=== PATIENT | female | born 1985 | race Caucasian/White ===

== ENCOUNTER 2023-05-15 21:07 | Emergency (ER) | payer MEDICAID ==
[~2023-05-15] VITALS: Ht 170.2 cm; Wt 155.0 kg
[2023-05-15 21:12] VITALS: BP 159/103; PULSE 86; RESP 18; TEMP 97.8; O2SAT 100
[2023-05-15 21:46] LABS: BILIRUBIN,URINE NEGATIVE (Neg); COLOR,URINE YELLOW (Yellow); GLUCOSE, URINE NEGATIVE (Neg); KETONES,URINE NEGATIVE (Neg); LEUKOCYTE ESTERASE ,URINE NEGATIVE (Neg); NITRITES, URINE NEGATIVE (Neg); OCCULT BLOOD,URINE LARGE (Neg); PROTEIN,URINE NEGATIVE (Neg); URINE HCG NEGATIVE (NEG); UROBILINOGEN,URINE 0.2 E.U/dL (0.2-1.0)
[2023-05-15 21:50] LABS: CLARITY,URINE CLOUDY (Clear); UA COLLECTION TYPE NON-SPECIFIED
[2023-05-15 21:52] LABS: MUCUS STRANDS NONE SEEN /LPF (Neg); RBC,URINE TNTC /HPF (0-2); SQUAMOUS EPITHELIAL CELL,UR MODERATE /LPF (FEW)
[2023-05-15 21:53] LABS: BACTERIA,URINE 1+ /HPF (Neg); WBC,URINE 0-4 /HPF (0-4)
[2023-05-15 21:56] LABS: BASOPHILS # (AUTO) 0.1 X10'3 (0-0.2); BASOPHILS % (AUTO) 0.8 % (0-1); EOSINOPHILS # (AUTO) 0.4 X10'3 (0-0.9); EOSINOPHILS % (AUTO) 3.8 % (0-6); HEMOGLOBIN 14.2 g/dl (12.0-16.0); LYMPHOCYTES # (AUTO) 2.2 X10'3 (1.1-4.8); LYMPHOCYTES % (AUTO) 22.3 % (21-51); MEAN CORPUSCULAR HEMOGLOBIN 30.2 PG (27.0-31.0); MEAN CORPUSCULAR HGB CONC 34.7 g/dL (33.0-36.5); MONOCYTES # (AUTO) 0.6 X10'3 (0-0.9); MONOCYTES % (AUTO) 6.1 % (2-12); NEUTROPHILS # (AUTO) 6.6 X10'3 (1.8-7.7); PLATELET COUNT 313 X10'3 (140-440); RED BLOOD COUNT 4.71 X10'6 (4.20-5.60); RED CELL DISTRIBUTION WIDTH 13.9 % (11.5-14.5); WHITE BLOOD COUNT 9.8 X10'3 (4.5-11.0)
[2023-05-15 22:10] LABS: ALANINE AMINOTRANSFERASE 42 U/L (12-78); ALBUMIN 3.5 G/DL (3.4-5.0); ALKALINE PHOSPHATASE 93 IU/L (46-116); ANION GAP 9 (8-16); ASPARTATE AMINO TRANSFERASE 18 U/L (10-37); BILIRUBIN,TOTAL 0.2 MG/DL (0.1-1.0); BLOOD UREA NITROGEN 18 MG/DL (7-18); BUN/CREATININE RATIO 26.9 (10.0-20.0); CALCIUM 9.2 MG/DL (8.5-10.1); CHLORIDE 102 MMOL/L (99-107); CREATININE 0.67 MG/DL (0.40-0.90); GLUCOSE 102 MG/DL (70-104); POTASSIUM 3.7 MMOL/L (3.5-5.1); SODIUM 136 MMOL/L (135-145); TOTAL PROTEIN 7.1 G/DL (6.4-8.2); eCRCL 110 ML/MIN; eGFR > 90 ML/MIN
[2023-05-15 22:17] LABS: LIPASE 25 U/L (16-77)
== END 2023-05-16 03:11 | disposition left against medical advice (07) ==
LOC: ER 21:08
DX: R10.9 Unspecified abdominal pain (principal); Z53.21 Procedure and treatment not carried out due to patient leaving prior to being seen by health care provider
CPT/HCPCS: 36415; 80053; 81001; 81025; 83690; 85025; 99281

== ENCOUNTER 2023-09-21 11:28 | Emergency (ER) | payer MEDICAID ==
[2023-09-21 11:55] LABS: BASOPHILS # (AUTO) 0.1 X10'3 (0-0.2); BASOPHILS % (AUTO) 0.7 % (0-1); EOSINOPHILS # (AUTO) 0.3 X10'3 (0-0.9); EOSINOPHILS % (AUTO) 3.8 % (0-6); HEMATOCRIT 40.9 % (35.0-45.0); HEMOGLOBIN 14.1 g/dl (12.0-16.0); LYMPHOCYTES # (AUTO) 1.2 X10'3 (1.1-4.8); LYMPHOCYTES % (AUTO) 15.5 % (21-51); MEAN CORPUSCULAR HGB CONC 34.6 g/dL (33.0-36.5); MEAN CORPUSCULAR VOLUME 86.8 FL (78-98); MONOCYTES # (AUTO) 0.5 X10'3 (0-0.9); MONOCYTES % (AUTO) 6.2 % (2-12); NEUTROPHILS # (AUTO) 5.9 X10'3 (1.8-7.7); NEUTROPHILS % (AUTO) 73.8 % (42-75); PLATELET COUNT 313 X10'3 (140-440); RED BLOOD COUNT 4.71 X10'6 (4.20-5.60); RED CELL DISTRIBUTION WIDTH 14.8 % (11.5-14.5)
[2023-09-21 12:04] LABS: ALANINE AMINOTRANSFERASE 34 U/L (12-78); ALBUMIN 3.1 G/DL (3.4-5.0); ALBUMIN/GLOBULIN RATIO 0.8 (1.1-1.5); ALKALINE PHOSPHATASE 101 IU/L (46-116); ANION GAP 10 (8-16); ASPARTATE AMINO TRANSFERASE 18 U/L (10-37); BILIRUBIN,TOTAL 0.3 MG/DL (0.1-1.0); BLOOD UREA NITROGEN 11 MG/DL (7-18); BUN/CREATININE RATIO 16.9 (10.0-20.0); CALCIUM 8.9 MG/DL (8.5-10.1); CHLORIDE 105 MMOL/L (99-107); CREATININE 0.65 MG/DL (0.40-0.90); GLUCOSE 81 MG/DL (70-104); POTASSIUM 4.2 MMOL/L (3.5-5.1); SODIUM 140 MMOL/L (135-145); TOTAL CARBON DIOXIDE 25.2 MMOL/L (24-32); TOTAL PROTEIN 7.1 G/DL (6.4-8.2); eGFR > 90 ML/MIN
[2023-09-21 12:11] LABS: PRO BRAIN NATRIURETIC PEPTIDE 128 PG/ML (0-125)
[2023-09-21 15:19] VITALS: BP 124/89; PULSE 82; RESP 16; TEMP 98; O2SAT 98
== END 2023-09-21 15:19 | disposition home or self-care (01) ==
LOC: ER 11:29
DX: I10 Essential (primary) hypertension (principal); F17.200 Nicotine dependence, unspecified, uncomplicated
CPT/HCPCS: 36415; 80053; 83880; 84484; 85025; 93005; 99284

== ENCOUNTER 2023-10-16 18:45 | Emergency (ER) | payer MEDICAID ==
[~2023-10-16] VITALS: Ht 170.2 cm; Wt 160.0 kg
[2023-10-16 18:52] VITALS: BP 128/81; PULSE 99; RESP 20; TEMP 98.1; O2SAT 98
[2023-10-16 19:10] LABS: BASOPHILS # (AUTO) 0.1 X10'3 (0-0.2); BASOPHILS % (AUTO) 0.8 % (0-1); EOSINOPHILS # (AUTO) 0.3 X10'3 (0-0.9); EOSINOPHILS % (AUTO) 2.7 % (0-6); HEMATOCRIT 38.2 % (35.0-45.0); HEMOGLOBIN 13.3 g/dl (12.0-16.0); LYMPHOCYTES # (AUTO) 1.5 X10'3 (1.1-4.8); LYMPHOCYTES % (AUTO) 12.7 % (21-51); MEAN CORPUSCULAR HEMOGLOBIN 30.1 PG (27.0-31.0); MEAN CORPUSCULAR HGB CONC 34.9 g/dL (33.0-36.5); MEAN PLATELET VOLUME 7.7 FL (7.4-10.4); MONOCYTES # (AUTO) 0.8 X10'3 (0-0.9); MONOCYTES % (AUTO) 6.6 % (2-12); NEUTROPHILS % (AUTO) 77.2 % (42-75); PLATELET COUNT 351 X10'3 (140-440); RED BLOOD COUNT 4.44 X10'6 (4.20-5.60); RED CELL DISTRIBUTION WIDTH 15.6 % (11.5-14.5); WHITE BLOOD COUNT 11.6 X10'3 (4.5-11.0)
[2023-10-16 19:25] LABS: ALBUMIN 3.1 G/DL (3.4-5.0); ANION GAP 9 (8-16); BLOOD UREA NITROGEN 14 MG/DL (7-18); BUN/CREATININE RATIO 15.1 (10.0-20.0); CALCIUM 8.9 MG/DL (8.5-10.1); CHLORIDE 95 MMOL/L (99-107); CREATININE 0.93 MG/DL (0.40-0.90); GLUCOSE 135 MG/DL (70-104); POTASSIUM 3.7 MMOL/L (3.5-5.1); PRO BRAIN NATRIURETIC PEPTIDE < 30 PG/ML (0-125); SODIUM 131 MMOL/L (135-145); TOTAL CARBON DIOXIDE 26.9 MMOL/L (24-32); eCRCL 79 ML/MIN; eGFR 67 ML/MIN
== END 2023-10-16 23:22 | disposition left against medical advice (07) ==
LOC: ER 18:46
DX: R06.02 Shortness of breath (principal); R07.9 Chest pain, unspecified; Z53.21 Procedure and treatment not carried out due to patient leaving prior to being seen by health care provider
CPT/HCPCS: 36415; 71045; 80048; 83880; 84484; 85025; 93005

== ENCOUNTER 2024-03-31 22:08 | Emergency (ER) | payer MEDICAID ==
[~2024-03-31] VITALS: Ht 170.2 cm; Wt 177.3 kg
[2024-03-31] MEDS: insulin regular, human 10 units/0.1 ml syringe SQ ONE (23:00)
[2024-03-31 23:09] VITALS: BP 144/66; PULSE 99; TEMP 98.6; O2SAT 98
[2024-03-31 23:22] VITALS: RESP 17
== END 2024-03-31 23:11 | disposition home or self-care (01) ==
LOC: ER 22:08
DX: E11.65 Type 2 diabetes mellitus with hyperglycemia (principal); I10 Essential (primary) hypertension
CPT/HCPCS: 82948; 96372; 99283; J1815

== ENCOUNTER 2024-10-29 15:21 | Emergency (ER) | payer MEDICAID ==
[~2024-10-29] VITALS: Ht 167.6 cm; Wt 164.3 kg
[2024-10-29 15:31] VITALS: BP 135/78; PULSE 99; RESP 16; TEMP 98; O2SAT 98
--- NOTE | 2024-10-29 16:19 | RADIOLOGY REPORT ---
Indication: Constipation Technique: Frontal radiographs of the chest, abdomen Comparison: 10/16/2023 FINDINGS/IMPRESSION: Cardiac silhouette unremarkable. No airspace consolidation. No pneumothorax. No pleural effusion. M ild pulmonary vascular congestion. Moderate to large volume stool within the colon. Hepatomegaly. No evidence for free intraperitoneal air.
--- NOTE | 2024-10-29 16:41 | Physician Documentation ---
History of Present Illness General Chief Complaint: Constipation Stated Complaint: SEE CHIEF COMPLAINT Time Seen by MD: 15:47 Primary Medical Doctor: Nathanael To History of Present Illness Initial Comments 39-year-old female presents to the emergency department with concerns of constipation. Reports that she has been taking some Colace yet tenderness to have on is say she had a bowel movements. Place feels that she has not in her rectum bought able to pass a stool. No reported nausea or vomiting. Has had mild history of the same in the past. Medication Reconciliation Allergies: Coded Allergies: No Known Allergies (Unverified , 05/15/23) Past Medical History Past Medical History: Hypertension Past Surgical History: no surgical history Alcohol Use: None Drug Use: none Lives In: Home Review of Systems All Other Systems at this time: Reviewed and Negative GI: Reports: abdominal pain, constipation; Denies: nausea, vomiting, diarrhea Physical Exam Physical Exam Vital Signs: RN Vital Signs have been reviewed: Yes, Temperature: 98.0, Source: Temporal, Heart Rate: 99, Respiratory Rate: 16, BP: 135/78, Pulse Oximetry: 98, Weight: 164.300 Oxygen Flow Rate: 0 General Appearance: alert, WD/WN, mild distress Face: normal inspection Pupils/EOM/Fundus: PERRLA Gastrointestinal: bowels sounds present Extremities: normal range of motion Neurologic: oriented x4 Motor / Sensory: no motor deficit Psychiatric: normal mood/affect Skin: normal color, warm/dry; No: rash Progress Results/Orders Results/Orders Orders - SISI BALBUENA PAC X-Ray Exam Abdomen 2 Views (10/29/24 ) Completed Orders - SISI BALBUENA PAC X-Ray Exam Abdomen 2 Views (10/29/24 ) Vital Signs 10/29/24 15:31 Temp 98.0 Pulse 99 Resp 16 B/P (MAP) 135/78 Pulse Ox 98 O2 Flow Rate 0 Medical Decision Making Differential Diagnosis X-ray imaging consistent with large stool burden without obstruction. Patient had BP of provided polyethylene glycol and fleets. She will follow up with the primary care for considerations patient continued prophylactic constipation medications Departure Disposition: HOME / SELF CARE / HOMELESS Impression: Primary Impression: Constipation Qualified Codes: K59.00 - Constipation, unspecified Condition: Stable Discharge Instructions: Constipation, Adult Additional Instructions: Please begin medications as directed. X-rays are reassuring for no obstruction. Obtain fleets and polyethylene glycol as directed. Referrals: NO PRIMARY CARE PROVIDER (PCP) Prescriptions Na Phos,M-B/Na Phos,Di-Ba (Enema Ready To Use) 19 Gram-7 Gram/118 Ml Enema 118 ML RC DAILY for 3 Days, #354 ML 0 Refills DIRECTED Prov: SISI BALBUENA PAC 10/29/24 Polyethylene Glycol 3350 (Miralax) 17 Gram/Dose Powder 17 GM PO DAILY for constipation, #527 GM 0 Refills dissolve in water Prov: SISI BALBUENA PAC 10/29/24 Education Educated: Patient Educated regarding: diagnosis, treatment Signature Scribe Signature: . Attestation: . SISI BALBUENA PAC Oct 29, 2024 16:41
[2024-10-29] MEDS ORDERED: POLY119P2 PO (16:43)
[2024-10-29] MEDS ORDERED: SODI133E14 RC (16:49)
== END 2024-10-29 17:05 | disposition home or self-care (01) ==
LOC: ER 15:22
DX: K59.00 Constipation, unspecified (principal); I10 Essential (primary) hypertension
CPT/HCPCS: 74019; 99283